=== PATIENT | female | born 1965 | race Caucasian/White ===

== ENCOUNTER 2016-08-20 06:54 | Observation (INO) | payer BC ==
[~2016-08-20] VITALS: Ht 162.6 cm; Wt 51.2 kg
[2016-08-20] VITALS (8 sets, daily range): BP systolic 114–168; BP diastolic 72–95; PULSE 88–105; TEMP 98.1–100.2
[2016-08-20 07:33] LABS: MEAN CELL VOLUME 106 fl (80.0-100.0); MEAN CORPUSCULAR HGB CONC 34 g/dl (33.0-37.0); MEAN PLATELET VOLUME 9.1 fl (7.4-10.4); PLATELET COUNT 180 K/mm3 (130-400); RED BLOOD COUNT 3.11 M/mm3 (4.10-5.30); REDCELL DISTRIBUTION WIDTH-CV 15.3 % (11.5-14.5); WHITE BLOOD COUNT 9.1 K/mm3 (4.8-10.8)
[2016-08-20 07:38] LABS: HEMATOCRIT 32.9 % (37.0-47.0); HEMOGLOBIN 11.2 g/dl (12.5-16.0); MEAN CORPUSCULAR HEMOGLOBIN 36 pg (27.0-31.0)
[2016-08-20 07:39] LABS: ADD PATHOLOGY DIFF REVIEW NO
[2016-08-20 07:47] LABS: INR 1.6 (0.8-3.0); PROTHROMBIN TIME 18.2 SECONDS (9.7-12.8)
[2016-08-20 08:10] LABS: ADJUSTED CALCIUM 9.1 mg/dL (8.4-10.2); ALANINE AMINOTRANSFERASE 28 U/L (9-52); ALBUMIN 3.8 gm/dL (3.5-5.0); ALKALINE PHOSPHATASE 74 U/L (50-136); ANION GAP 10 mmol/L (7-16); BILIRUBIN,TOTAL 0.7 mg/dL (0.0-1.0); BLOOD UREA NITROGEN 18 mg/dL (7-17); CALCIUM 8.9 mg/dL (8.4-10.2); CARBON DIOXIDE 25 mmol/L (22-30); CHLORIDE 101 mmol/L (98-107); CREATININE, serum 1.06 mg/dL (0.52-1.25); GLUCOSE 116 mg/dL (74-106); MAGNESIUM 2.2 mg/dL (1.6-2.3); POTASSIUM 3.7 mmol/L (3.4-5.0); SODIUM 136 mmol/L (137-145); TOTAL PROTEIN 6.3 gm/dL (6.4-8.2)
[2016-08-20 08:16] LABS: CREATINE KINASE < 20 U/L (30-135)
[2016-08-20] MEDS ORDERED: WELLBUTRIN XL300 M1 PO (08:20)
[2016-08-20 08:22] LABS: B-TYPE NATRIURETIC PEPTIDE 295 pg/mL (0-125); TROPONIN-I 0.031 ng/mL (0.000-0.034)
[2016-08-20] MEDS ORDERED: DESYREL 50MG50 MG PO (08:25)
[2016-08-20] MEDS ORDERED: FIORICET 325 MG1 TA1 PO (08:25)
[2016-08-20] MEDS ORDERED: SMZ/TMPDS PO (08:27)
[2016-08-20] MEDS ORDERED: COREG 3.123.125 MG/T PO (08:31)
[2016-08-20] MEDS ORDERED: GENGRAF100 MG PO (08:32)
[2016-08-20] MEDS ORDERED: ATIVAN 0.50.5 MG/TAB PO (08:33)
[2016-08-20] MEDS ORDERED: ZESTRIL2.5 MG PO (08:33)
[2016-08-20] MEDS ORDERED: MAGNESIUM2 GM/50 ML IV (08:34)
[2016-08-20] MEDS ORDERED: MAG-OX 400400 MG/TAB PO (08:34)
[2016-08-20] MEDS ORDERED: OXY IR5 MG PO (08:37)
[2016-08-20] MEDS ORDERED: XARELTO20 MG PO (08:38)
[2016-08-20] MEDS ORDERED: ALDACTONE 25MG25 M1 PO (08:38)
[2016-08-20] MEDS ORDERED: VALTREX1 GM PO (08:39)
[2016-08-20] MEDS ORDERED: ZOFRAN8 MG PO (08:40)
[2016-08-20 09:15] LABS: BAND 30 % (0-10); EOSINOPHIL 1 % (0-4); METAMYELOCYTE 1 % (0-0); MYELOCYTE 2 % (0-0); NEUTROPHILS 56 % (42.0-75.2); TOTAL CELLS COUNTED 100
[2016-08-20 09:16] LABS: HYPOCHROMIA 1+; PLATELET ESTIMATE NORMAL (NORMAL); TEAR DROP CELLS 1+
[2016-08-20 09:17] LABS: OVALOCYTES 1+
[2016-08-20 18:24] LABS: PH 5 (5-8); SQUAMOUS EPITHELIAL 0-2 /hpf; URINE APPEARANCE Clear; URINE BACTERIA None Seen /hpf; URINE BILIRUBIN Negative (NEGATIVE); URINE BLOOD Negative (NEGATIVE); URINE COLOR Yellow; URINE GLUCOSE Negative (NEGATIVE); URINE KETONE Negative (NEGATIVE); URINE RBC 0-2 /hpf; URINE UROBILINOGEN Negative (NEGATIVE)
== END 2016-08-20 20:25 | disposition short-term general hospital (02) ==
LOC: COL.ER 06:54 → MEDICAL 09:15
PROVIDERS: Emergency Medicine; Nurse Practitioner Family
DX: I21.4 Non-ST elevation (NSTEMI) myocardial infarction (principal); R50.9 Fever, unspecified; I24.9 Acute ischemic heart disease, unspecified; I42.8 Other cardiomyopathies; C92.Z1 Other myeloid leukemia, in remission; Z94.81 Bone marrow transplant status; Z92.21 Personal history of antineoplastic chemotherapy; Z92.3 Personal history of irradiation
CPT/HCPCS: C9113; G0378; J0692; J2060; J2270; J2405; J2550; J7030; Q9967